=== PATIENT | male | born 1955 | race Caucasian/White ===

== ENCOUNTER 2022-07-08 16:23 | Emergency (ER) | payer MEDICARE, SELFPAY ==
[2022-07-08 16:38] VITALS: BP 158/85; PULSE 71; RESP 20; TEMP 37.3; O2SAT 91; BMI 43.8
== END 2022-07-08 18:05 | disposition left against medical advice (07) ==
PROVIDERS: Emergency Provider Family Medicine
DX: Z53.21 Procedure and treatment not carried out due to patient leaving prior to being seen by health care provider (principal)

== ENCOUNTER 2022-07-21 16:10 | Outpatient (CLI) | payer MEDICARE, SELFPAY ==
[2022-07-22 16:06] LABS: Chloride* 100 mmol/L (96-114)
[2022-07-22 16:07] LABS: Albumin* 3.9 g/dL (3.3-5.0); Potassium* 4.3 mmol/L (3.6-5.1); Sodium* 139 mmol/L (135-149)
[2022-07-22 16:09] LABS: Carbon Dioxide* 32 mmol/L (20-32); Cholesterol* 138 mg/dL (90-199)
[2022-07-22 16:10] LABS: Alanine Aminotransferase* 34 U/L (4-50); Alkaline Phosphatase* 139 U/L (40-150); Aspartate Amino Transferase* 66 U/L (12-35); Bilirubin Total* 2.5 mg/dL (0.1-1.5); Blood Urea Nitrogen* 9 mg/dL (7-30); Creatinine* 0.5 mg/dL (0.5-1.5); Estimated Glomerular Filt Rate 111 ml/min; Glucose* 95 mg/dL (60-115); Total Protein* 7.8 g/dL (6.0-8.3); Triglycerides* 66 mg/dL (40-149)
[2022-07-22 16:11] LABS: Calcium* 9.3 mg/dL (8.4-10.6); HDL Cholesterol* 46 mg/dL (>=40); LDL Cholesterol Calculated 79 mg/dL (<100)
[2022-07-22 16:37] LABS: PSA Screen* 0.31 ng/mL (0.10-4.00)
[2022-07-22 16:56] LABS: Vitamin B12* 702 pg/mL (243-894)
== END 2022-07-21 16:11 | disposition home or self-care (01) ==
PROVIDERS: PCP Family Medicine; Visit Provider Family Medicine
DX: R06.00 Dyspnea, unspecified (principal); E78.5 Hyperlipidemia, unspecified; I10 Essential (primary) hypertension; Z13.21 Encounter for screening for nutritional disorder; Z12.5 Encounter for screening for malignant neoplasm of prostate; M10.9 Gout, unspecified
CPT/HCPCS: 80053; 80061; 82607; 84153

== ENCOUNTER 2022-10-28 15:35 | Outpatient (CLI) | payer MEDICARE, SELFPAY ==
[2022-10-28 17:34] LABS: Chloride* 100 mmol/L (96-114); Potassium* 4.1 mmol/L (3.6-5.1); Sodium* 135 mmol/L (135-149)
[2022-10-28 17:37] LABS: Blood Urea Nitrogen* 7 mg/dL (7-30); Carbon Dioxide* 33 mmol/L (20-32); Creatinine* 0.4 mg/dL (0.5-1.5); Estimated Glomerular Filt Rate 119 ml/min; Glucose* 89 mg/dL (60-115); Uric Acid* 3.8 mg/dL (2.2-8.4)
[2022-10-28 17:38] LABS: Calcium* 8.5 mg/dL (8.4-10.6)
== END 2022-10-28 15:36 | disposition home or self-care (01) ==
PROVIDERS: PCP Family Medicine; Visit Provider Family Medicine
DX: R53.83 Other fatigue (principal); I10 Essential (primary) hypertension; M10.9 Gout, unspecified
CPT/HCPCS: 80048; 84443; 84550

== ENCOUNTER 2022-11-05 12:49 | Outpatient (CLI) | payer MEDICARE, SELFPAY | END 2022-11-05 12:50 | disposition home or self-care (01) | LOC: RAD 12:52 | PROVIDERS: PCP Family Medicine; Visit Provider Family Medicine | DX: R06.01 Orthopnea (principal); I51.7 Cardiomegaly; I35.0 Nonrheumatic aortic (valve) stenosis | CPT/HCPCS: 93306 ==

== ENCOUNTER 2022-11-21 13:34 | Outpatient (CLI) | payer MEDICARE, SELFPAY ==
[2022-11-21 18:04] LABS: Albumin* 2.9 g/dL (3.3-5.0); Chloride* 95 mmol/L (96-114); Sodium* 137 mmol/L (135-149)
[2022-11-21 18:05] LABS: Potassium* 3.8 mmol/L (3.6-5.1)
[2022-11-21 18:06] LABS: Cholesterol* 103 mg/dL (90-199)
[2022-11-21 18:07] LABS: Alanine Aminotransferase* 33 U/L (4-50); Alkaline Phosphatase* 105 U/L (40-150); Aspartate Amino Transferase* 60 U/L (12-35); Bilirubin Total* 2.4 mg/dL (0.1-1.5); Blood Urea Nitrogen* 9 mg/dL (7-30); Creatinine* 0.5 mg/dL (0.5-1.5); Estimated Glomerular Filt Rate 111 ml/min; Glucose* 85 mg/dL (60-115); Total Protein* 7.2 g/dL (6.0-8.3); Triglycerides* 54 mg/dL (40-149)
[2022-11-21 18:08] LABS: HDL Cholesterol* 26 mg/dL (>=40); LDL Cholesterol Calculated 66 mg/dL (<100)
[2022-11-21 18:16] LABS: Carbon Dioxide* 38 mmol/L (20-32)
== END 2022-11-21 13:35 | disposition home or self-care (01) ==
PROVIDERS: PCP Family Medicine; Visit Provider Family Medicine
DX: I10 Essential (primary) hypertension (principal); E78.5 Hyperlipidemia, unspecified
CPT/HCPCS: 80053; 80061

== ENCOUNTER 2022-12-02 11:39 | Outpatient (CLI) | payer MEDICARE, SELFPAY ==
[2022-12-02 17:24] LABS: Chloride* 92 mmol/L (96-114); Potassium* 3.4 mmol/L (3.6-5.1); Sodium* 137 mmol/L (135-149)
[2022-12-02 17:26] LABS: Creatinine* 0.6 mg/dL (0.5-1.5); Estimated Glomerular Filt Rate 105 ml/min
[2022-12-02 17:27] LABS: Blood Urea Nitrogen* 13 mg/dL (7-30); Glucose* 98 mg/dL (60-115)
[2022-12-02 17:34] LABS: Carbon Dioxide* 40 mmol/L (20-32)
== END 2022-12-02 11:40 | disposition home or self-care (01) ==
LOC: LONREF 11:42
PROVIDERS: PCP Family Medicine; Visit Provider Family Medicine
DX: R60.9 Edema, unspecified (principal)
CPT/HCPCS: 80048

== ENCOUNTER 2022-12-09 14:17 | Outpatient (REF) | payer MEDICARE, SELFPAY ==
[2022-12-09 14:58] LABS: Eosinophils Percent Auto 3.9 % (0.0-7.0); Hemoglobin* 13.6 gm/dL (13.5-17.5); Lymphocytes Percent Auto 24.4 % (20-44); Mean Corpuscular HGB Conc 33 gm/dL (32-36); Mean Corpuscular Hemoglobin 35 pg (26-34); Mean Corpuscular Volume 105 fL (80-100); Monocytes Percent Auto 18.1 % (0.0-11.0); Neutrophils Percent Auto 53.6 % (42.0-72.0); Platelet Count* 123 K/uL (140-440); RDW Coefficient of Variation % 13.7 % (11.5-15.5); Red Blood Count 3.92 m/uL (4.30-5.90); White Blood Count* 2.54 K/uL (4.50-11.00)
[2022-12-09 15:01] LABS: Albumin* 2.9 g/dL (3.3-5.0); Chloride* 93 mmol/L (96-114); Sodium* 134 mmol/L (135-149)
[2022-12-09 15:03] LABS: Creatinine* 0.6 mg/dL (0.5-1.5); Estimated Glomerular Filt Rate 105 ml/min
[2022-12-09 15:04] LABS: Alanine Aminotransferase* 42 U/L (4-50); Alkaline Phosphatase* 98 U/L (40-150); Aspartate Amino Transferase* 80 U/L (12-35); Bilirubin Direct* 0.5 mg/dL (0.0-0.5); Bilirubin Total* 3.3 mg/dL (0.1-1.5); Blood Urea Nitrogen* 10 mg/dL (7-30); Carbon Dioxide* 39 mmol/L (20-32); Glucose* 110 mg/dL (60-115); Total Protein* 7.5 g/dL (6.0-8.3)
[2022-12-09 15:05] LABS: Calcium* 8.5 mg/dL (8.4-10.6)
[2022-12-09 15:37] LABS: Slide Review Reflex No
[2022-12-09 16:02] LABS: INR 1.33 (0.91-1.10); Prothrombin Time 17.2 Seconds
== END 2022-12-09 14:18 | disposition home or self-care (01) ==
LOC: NPINS 14:17
PROVIDERS: PCP Family Medicine
DX: C22.0 Liver cell carcinoma (principal)
CPT/HCPCS: 80048; 80076; 85025; 85610

== ENCOUNTER 2023-03-26 15:43 | Outpatient (CLI) | payer MEDICARE, SELFPAY | END 2023-03-26 15:44 | disposition home or self-care (01) | PROVIDERS: PCP Family Medicine; Visit Provider Family Medicine | DX: C22.0 Liver cell carcinoma (principal); E87.6 Hypokalemia; Z13.0 Encounter for screening for diseases of the blood and blood-forming organs and certain disorders involving the immune mechanism | CPT/HCPCS: 80076 ==

== ENCOUNTER 2023-05-01 17:20 | Outpatient (REF) | payer MEDICARE, SELFPAY ==
[2023-05-01 17:37] LABS: Chloride* 91 mmol/L (96-114); Potassium* 4.4 mmol/L (3.6-5.1); Sodium* 126 mmol/L (135-149)
[2023-05-01 17:39] LABS: Creatinine* 0.8 mg/dL (0.5-1.5); Estimated Glomerular Filt Rate 96 ml/min
[2023-05-01 17:40] LABS: Blood Urea Nitrogen* 19 mg/dL (7-30); Calcium* 8.3 mg/dL (8.4-10.6); Carbon Dioxide* 31 mmol/L (20-32); Glucose* 95 mg/dL (60-115)
== END 2023-05-01 17:21 | disposition home or self-care (01) ==
LOC: NPINS 17:20
PROVIDERS: PCP Family Medicine; Visit Provider Internal Medicine Gastroenterology
DX: C22.0 Liver cell carcinoma (principal)
CPT/HCPCS: 80048

== ENCOUNTER 2023-06-15 08:39 | Outpatient (CLI) | payer MEDICARE, SELFPAY ==
[2023-06-15 09:23] LABS: Chloride* 96 mmol/L (96-114)
[2023-06-15 09:24] LABS: Potassium* 4.8 mmol/L (3.6-5.1); Sodium* 125 mmol/L (135-149)
[2023-06-15 09:26] LABS: Anion Gap 5 mEq/L (7-15); Carbon Dioxide* 24 mmol/L (20-32); Creatinine* 0.8 mg/dL (0.5-1.5); Estimated Glomerular Filt Rate 96 ml/min
[2023-06-15 09:27] LABS: Blood Urea Nitrogen* 23 mg/dL (7-30); Calcium* 8.8 mg/dL (8.4-10.6); Glucose* 98 mg/dL (60-115)
== END 2023-06-15 08:40 | disposition home or self-care (01) ==
PROVIDERS: PCP Family Medicine; Visit Provider Internal Medicine Gastroenterology
DX: C22.0 Liver cell carcinoma (principal)
CPT/HCPCS: 36415; 80048

== ENCOUNTER 2023-09-20 21:02 | Outpatient (CLI) | payer MEDICARE, SELFPAY | END 2023-09-20 21:03 | disposition home or self-care (01) | LOC: AMB 09-24 10:50 | PROVIDERS: PCP Family Medicine; Visit Provider Emergency Medicine Emergency Medical Services | DX: R41.82 Altered mental status, unspecified (principal); R11.2 Nausea with vomiting, unspecified; R19.7 Diarrhea, unspecified | CPT/HCPCS: A0425; A0427 ==

== ENCOUNTER 2023-11-07 07:16 | Outpatient (CLI) | payer MEDICARE, SELFPAY | END 2023-11-07 07:17 | disposition home or self-care (01) | LOC: AMB 11-09 11:49 | PROVIDERS: PCP Family Medicine; Visit Provider Internal Medicine | DX: S39.92XA Unspecified injury of lower back, initial encounter (principal); W18.30XA Fall on same level, unspecified, initial encounter; Y92.002 Bathroom of unspecified non-institutional (private) residence as the place of occurrence of the external cause | CPT/HCPCS: A0425; A0427 ==